=== PATIENT | male | born 1975 | race Caucasian/White ===

== ENCOUNTER 2017-06-19 15:50 | Emergency (ER) | payer OTHER ==
[2017-06-19 15:50] VITALS: BMI 29.8
[2017-06-19 15:53] VITALS: BP 128/88; PULSE 91; RESP 20; TEMP 98.1; O2SAT 100
--- NOTE | 2017-06-19 17:09 | C.PDOC ---
History Of Present Illness LS strain/sprain, worse with heat therapy overnight. no neurological s/s Pt Defer narcotics due to prior narcotics issues. Improved with ice/NSAIDS in ED Extensively educated pt and in ED Time Seen by Provider: 06/19/17 16:22 Chief Complaint (Nursing): Back Pain History Per: Patient History/Exam Limitations: no limitations Onset/Duration Of Symptoms: Days Current Symptoms Are (Timing): Still Present Severity: Moderate Past Medical History Reviewed: Historical Data, Nursing Documentation, Vital Signs Vital Signs: Last Vital Signs Temp 98.1 F 06/19/17 15:51 Pulse 91 H 06/19/17 15:51 Resp 20 06/19/17 15:51 BP 128/88 06/19/17 15:51 Pulse Ox 100 06/19/17 19:43 - Medical History PMH: TIA (2011) Denies: Depression, Chronic Kidney Disease Surgical History: Cholecystectomy, Hernia Repair, Tonsillectomy - [facility] Procedures INJECT/INFUSE NEC (11/22/12) OTHER SKIN & SUBQ I D (10/28/11) TETANUS TOXOID ADMINIST (10/26/11) Family History: States: No Known Family Hx - Social History Hx Tobacco Use: Yes Hx Alcohol Use: No Hx Substance Use: Yes - Immunization History Hx Tetanus Toxoid Vaccination: Yes Hx Influenza Vaccination: Yes Hx Pneumococcal Vaccination: No Review Of Systems Except As Marked, All Systems Reviewed And Found Negative. Musculoskeletal: Positive for: Back Pain Neurological: Negative for: Weakness, Numbness Physical Exam - Physical Exam Appears: Non-toxic, No Acute Distress Skin: Normal Color, Warm, No Rash Head: Atraumatic, Normacephalic Eye(s): bilateral: Normal Inspection, PERRL Nose: Normal Oral Mucosa: Moist Neck: Supple Chest: Symmetrical Cardiovascular: Rhythm Regular Respiratory: Normal Breath Sounds, No Accessory Muscle Use Back: Other (tenderness in the superficial sacroiliac area) Extremity: Normal ROM, No Tenderness, No Swelling Neurological/Psych: Oriented x3, Normal Speech, Normal Cognition, Normal Motor, Normal Sensation ED Course And Treatment O2 Sat by Pulse Oximetry: 100 Progress Note: Ice pack, shot of Toradol. Patient states pain is improving. Medical Decision Making Medical Decision Making: corroborates pt has been through narcotics rehab x 3, just last finished earlier this month though pt would accept narcotics for pain, pt and together decide no narcotics today. Disposition Doctor Will See Patient In The: Office Counseled Patient/Family Regarding: Studies Performed, Diagnosis - Disposition Referrals: Bairon Preston MD [Medical Doctor] - Disposition: HOME/ ROUTINE Disposition Time: 17:10 Condition: GOOD Additional Instructions: ice packs 1/2 hour per hour, nothing hot no hot showers/baths NO heating pads Motrin 400-600 mg every 6 hours as needed. Instructions: Muscle Strain (ED), Musculoskeletal Pain (ED) Forms: [employer]ance App (Macedonian) - Clinical Impression Clinical Impression: Sacro-iliac pain - Scribe Statement The provider has reviewed the documentation as recorded by the Scribe Airam Campos Provider Attestation: All medical record entries made by the Scribe were at my direction and personally dictated by me. I have reviewed the chart and agree that the record accurately reflects my personal performance of the history, physical exam, medical decision making, and the department course for this patient. I have also personally directed, reviewed, and agree with the discharge instructions and disposition.
== END 2017-06-19 17:17 | disposition home or self-care (01) ==
LOC: C.ER 15:50
DX: M53.3 Sacrococcygeal disorders, not elsewhere classified (principal)
CPT/HCPCS: 96372; 99283; J1885